=== PATIENT | female | born 1990 | race Caucasian/White ===

== ENCOUNTER 2018-12-09 12:46 | Emergency (ER) | payer BC, SELFPAY ==
[2018-12-09 12:47] VITALS: BP 125/61; PULSE 130; RESP 28; TEMP 37.7; O2SAT 98; BMI 28.1
--- NOTE | 2018-12-09 12:59 | EKG12_ITS ---
Test Reason : CP Blood Pressure : / mmHG Vent. Rate : 104 BPM Atrial Rate : 104 BPM P-R Int : 134 ms QRS Dur : 084 ms QT Int : 332 ms P-R-T Axes : 025 042 025 degrees QTc Int : 436 ms Sinus tachycardia Nonspecific ST abnormality Abnormal ECG Confirmed by UMBERTO LOO, DESHAUN ([id number]), editor in chief newspaper [employer] ALEXANDER ([id number]) on 12/11/2018 7:12:17 AM Referred By: TRISTIN Confirmed By:DESHAUN SHIPMAN MD
[2018-12-09 13:02] VITALS: BP 110/66; PULSE 103; PULSE 110; RESP 14; RESP 16; TEMP 37.1; O2SAT 97
[2018-12-09 13:03] VITALS: O2SAT 96
--- NOTE | 2018-12-09 13:21 | ED.DCSUM_ITS ---
History of Present Illness Chief Complaint: Cough Informant: Patient Onset: Days - 2 Context: Gradual Onset Timing: Continuous Quality: ENGLISH COMPOSITION INSTRUCTOR cough Location: chest Current Severity: Moderate Maximum Severity: Moderate Worsened by: coughing Relieved by: nothing Associated Symptoms: subj fever/chills, myalgias, burning center chest w/ cough only Narrative: Patient had influenza vaccine this season. There has been a high prevalence of influenza in this area for the past several weeks, including in patients who have been vaccinated. She is 15 weeks, she has had no abdominal pains, vaginal discharge, or bleeding. She states she is urinating a little less because her appetite has been poor in the last couple days and she is not been eating or drinking very much but she denies any nausea or vomiting. Mild sore throat, no earache, neck is sore and she has been having some headaches off and on. Past Medical History - Allergies and Home Meds Allergies/Adverse Reactions: Allergies codeine Allergy (Verified 12/09/18 12:49) Rash Past Medical History: None Lives: Spouse/ Significant Other Smoking Status: Never smoker Review of Systems General: Reports: Chills, Fever, Malaise, Subjective Eyes: Denies: Visual changes - bilaterally, Diplopia ENT: Reports: Sore throat Cardiovascular: Reports: Chest pain. Denies: Palpitations Respiratory: Reports: Cough. Denies: Dyspnea, Sputum Gastrointestinal: Denies: Abdominal pain, Nausea, Vomiting, Diarrhea, Melena, Hematochezia Genitourinary: Denies: Dysuria, Hematuria, Frequency Musculoskeletal: Reports: Myalgias, Neck pain, Extremity Pain. Denies: Back pain Skin: Denies: Rash, Wounds Neurological: Denies: Headache, Weakness, Numbness Physical Exam Vital Signs/Narrative: Vital Signs Temp Pulse Resp BP Pulse Ox 12/09/18 13:02 98.8 F 103 H 16 110/66 97 12/09/18 12:47 99.8 F H 130 H 28 H 125/61 H 98 Inital Vital Signs reviewed: Yes General: Well nourished, Well developed, No Acute Distress Head: Normocephalic, Atraumatic Eyes: Perrl, EOMI ENT: Moist mucous membranes, No rhinorrhea, TM's clear, Nasal congestion, - - POP clear, no erythema Neck: Supple, Nontender, No lymphadenopathy Cardiovascular: Regular rate, Regular rhythm, No murmurs, Tachycardia Respiratory: No distress, CTA bilaterally, Chest nontender Abdomen: Soft, Nontender, Nondistended, Normal bowel sounds Back: Nontender, Normal Inspection Extremities: Nontender, No edema Skin: Normal color, No rash, No Trauma Neurological: Alert, Oriented x3, Cranial nerves II-XII grossly intact, Normal Strength, Normal Sensation Psychological: Normal affect, Normal Mood Diagnostic/Tx/Re-eval - Medical Decision Making Patient likely has influenza. Given her classic symptoms time and the area where prevalence is high, I think empiric treatment is reasonable without testing. She is given the first Tamiflu now since she is at the cusp of 48 hours, as well as Tylenol and advised to push fluids. Her lungs are clear, I do not think she needs a chest x-ray. I will also prescribe her albuterol inhaler to see if it helps with some of the bronchitis-like symptoms she is having in her chest, we discussed using that she is comfortable with this overall plan. She is also asking for a work note. ED Disposition - Plan for ED Patient: Disposition: Home or Assisted Living Diagnosis: Influenza-like illness, First trimester Instructions: ED Flu Prescriptions: Albuterol Inhaler [Ventolin Hfa] 1 - 2 puff INHALATION Q4H PRN PRN #1 inhaler PRN Reason: Wheezing or bronchospasm Oseltamivir Phosphate [Tamiflu] 75 mg PO BID #10 cap Referrals: DoctorDelia, [STAFF PHYSICIAN] - Additional Instructions: Tylenol as needed for pain/fevers. May take Benadryl and/or guaifenesin as needed for runny nose/cough, but no oth er [id number] medicines. May also take cough drops as much as you need. Push yourself to drink plenty of fluids.
[2018-12-09] MEDS: Acetaminophen 500 MG Tablet 1000 MG PO (13:32)
[2018-12-09] MEDS: Oseltamivir Phosphate 75 MG Capsule PO (13:32)
[2018-12-09 13:33] VITALS: BP 110/74; PULSE 107; RESP 18; O2SAT 97
== END 2018-12-09 13:48 | disposition home or self-care (01) ==
PROVIDERS: Emergency Provider Emergency Medicine
DX: O98.512 Other viral diseases complicating pregnancy, second trimester (principal); J11.1 Influenza due to unidentified influenza virus with other respiratory manifestations; Z3A.15 15 weeks gestation of pregnancy
CPT/HCPCS: 93005; 99283

== ENCOUNTER 2019-03-22 15:50 | Outpatient (CLI) | payer BC, SELFPAY ==
[2019-03-22 16:14] VITALS: BMI 31.8
--- NOTE | 2019-03-22 19:35 | OB.TRI.NOTE ---
- Problem List (1) Decreased movement Status: Acute History of Present Illness Date of Service: 03/22/19 Was patient seen by the physician?: No Reason For Visit: DECREASED MOVEMENT Date of Service: 03/22/19 Final DEMARIO: 06/12/19 Final DEMARIO Source: US <20 weeks Gestational age: 28 Weeks and 2 Days Allergies codeine Allergy (Verified 03/22/19 16:16) Rash NST - FHR Rate Baby A Baseline: 125 Variability:: Moderate Accelerations:: 15 x 15 Decelerations:: None NST Reactive:: Yes FHR Category:: Category I Uterine Activity:: one contraction noted Impression/Plan G2, P1 at 28.2 weeks gestation presents for decreased movement NST reactive. DC home Follow-up in the office as scheduled
== END 2019-03-22 16:35 | disposition home or self-care (01) ==
LOC: WPOUT 16:05 → WP 16:06
PROVIDERS: Visit Provider Obstetrics & Gynecology
DX: O36.8130 Decreased fetal movements, third trimester, not applicable or unspecified (principal); Z3A.28 28 weeks gestation of pregnancy
CPT/HCPCS: 59025; 59050; 99218; G0378

== ENCOUNTER 2019-05-29 01:35 | Inpatient (IN) | payer BC, SELFPAY ==
[2019-05-29 02:10] VITALS: BMI 33.1
[2019-05-29] MEDS: Lactated Ringers 1,000 ML 50 ML IV (02:10)
[2019-05-29 02:29] LABS: Absolute Lymphocyte Count 1.93 X10^3/uL (0.83-4.51); Absolute Neutrophil Count 7.8 X10^3/uL (2.0-7.7); Basophil# 0.02 X10^3/uL; Basophil% 0.2 % (0-1); Eosinophil# 0.14 X10^3/uL; Eosinophils% 1.3 % (0-5); Hematocrit 37.6 % (37-47); Hemoglobin 13.2 g/dL (12.0-15.0); Lymphocyte # 1.93 X10^3/ul (4.0); Lymphocyte % 18.3 % (19-41); Mean Corp Hgb Conc 35.1 g/dL (32-36); Mean Corpuscular Hgb 30.8 pg (27.0-32.0); Mean Corpuscular Volume 87.6 fL (81-99); Mean Platelet Vol. 9.1 fl (6.2-12.0); Monocyte# 0.66 X10^3/uL; Monocyte% 6.2 % (0-10); NRBC Flagged by Analyzer 0 % (0-5); Neutrophil # 7.78 X10^3/uL (2.7-7.7); Neutrophil % 73.6 % (47-70); Platelet Count 154 K/mm3 (150-450); RBC Distribution Width CV 13.1 % (11.6-14.6); RBC Distribution Width SD 41.4 fl (35.1-43.9); Red Blood Count 4.29 M/mm3 (4.2-5.4); White Blood Count 10.6 K/mm3 (4.4-11.0)
[2019-05-29] MEDS: Lactated Ringers 500 ML 999 ML IV ×3 (02:43→08:54)
[2019-05-29] MEDS: Nalbuphine 10 MG/ML Ampul IV (03:38)
[2019-05-29] MEDS: fentaNYL-bupivacaine (epidural) 100 ML BAG EPIDURAL ×2 (04:13→08:25)
--- NOTE | 2019-05-29 08:15 | HP.PCM_ITS ---
History Date of Admission: 05/29/19 Final DEMARIO: 06/01/19 Final DEMARIO Source: US <20 weeks Gestational age: 39 Weeks and 4 Days History of this : This is a 28 year-old, G [], P [], at 39 weeks gestational age. Medical History: Medical History (Last Updated 05/29/19 @ 08:17 by Trung oSlomon) Depression F32.9 Hx of cryosurgery, cervix, complicating O34.40, Z98.890 history superficial thrombosis Allergies codeine Allergy (Verified 05/29/19 02:15) Rash Home Medications: Home Medications Pnv No.95/Ferrous Fum/Folic AC [ Formula] 1 each PO DAILY 12/09/18 Cetirizine HCl [Zyrtec] 10 mg PO DAILY 03/22/19 Smoking Status: Never smoker Alcohol: None Number of Fetus(es): 1 NST - FHR Rate Baby A Baseline: 110 Variability:: Moderate Accelerations:: 15 x 15 Decelerations:: None Uterine Activity:: Q3-4 minutes History Past Pregnancies: Past Pregnancies Delivery Date Name GA/Weeks Outcome Route Weight Infant Gender Labor Length Anesthesia Delivery Location Provider FOB Labs: See [facility] H[facility]P Physical Exam General: Alert, Oriented x3 Abdomen: Soft, Non-Distended - ff mid & below umb Neurological: Cranial nerves II-XII grossly intact FOOD SAFETY SPECIALIST: Normal external genitalia Estimated gestational size: Appropriate for gestational size Presentation: Cephalic Cervix Dilation (cm): 6 Station: -1 Effacement (%): 80 Assessment/Plan All Active Problems Decreased movement (Acute) This is a 28 year-old, G 2, P 1, at 39&4 weeks gestational age. Admit to L&D Labor - will augment with pitocin as needed GBS negative Pain - epidural EFW less than 4500g, adequate pelvis Routine care
[2019-05-29] MEDS: Lactated Ringers 1,000 ML 200 ML IV (08:24)
[2019-05-29] MEDS: Acetaminophen 325 MG Tablet PO (08:29)
[2019-05-29] MEDS: Oxytocin 30 units/NS 500 ml 30 UNITS/500 ML IV.SOLN IV (08:36)
[2019-05-29] MEDS: Amnioinfusion- 0.9% NS 1,000 ML IV.SOLN. 200 ML INTRA-UTER (09:24)
[2019-05-29] MEDS: Oxytocin 30 units/NS 500 ml 30 UNITS/500 ML IV.SOLN 334 UNITS IV (12:03)
--- NOTE | 2019-05-29 12:28 | PCM.OPRPT ---
Vaginal Delivery Maternal Presentation: Active Labor Amniotic Membrane Rupture Type: Artificial Amniotic Fluid Description: Clear Final DEMARIO: 06/01/19 Gestational age: 39 Weeks and 4 Days Date of Procedure: 05/29/19 Pre-Operative Diagnosis: Labor Post-Operative Diagnosis: Labor Surgery/ Procedure Performed: Spontaneous Vaginal Delivery Type of Anesthesia: Epidural Description of Procedure: Patient in stirrups when c/c/+2. She pushed to deliver head. head was gently guided to allow delivery of anterior & posterior shoulders. No excess traction placed on head. Body delivered and placed on maternal abdomen. 3VC clamped & cut in delayed fashion. Placenta delivered with gentle traction. Good uterine tone obtained. Presentation: ISIDRO Placental Delivery Description: Spontaneous Placenta Disposition: [facility] Cord Vessel Description: 3 Vessels Cord Entanglement: None Estimated Blood Loss: 200ml A gender: Male - Donny (1 minute): 8 (5 minute): 9 Episiotomy Description: None Laceration: None Medications given after delivery: IV Pitocin Complications: None
[2019-05-29 16:16] VITALS: BP 127/71; PULSE 82; RESP 18; TEMP 36.9; O2SAT 99
--- NOTE | 2019-05-29 16:17 | NURSING ---
Patient ambulated to bathroom. Pad changed. Pericare performed. Tolerated well. Voided - missed hat.
--- NOTE | 2019-05-29 16:18 | NURSING ---
Missed hat, estimate of at least 700 ml of urine
[2019-05-29] MEDS: Ibuprofen 600 MG Tablet PO ×2 (16:25→23:10)
[2019-05-29] MEDS: Acetaminophen 500 MG Tablet 1000 MG PO (17:58)
[2019-05-29 20:25] VITALS: BP 104/57; PULSE 92; RESP 18; TEMP 36.9; O2SAT 97
[2019-05-30 00:15] VITALS: BP 105/63; PULSE 74; RESP 18; TEMP 36.5
[2019-05-30 04:00] VITALS: BP 120/75; PULSE 85; RESP 18; TEMP 36.3
[2019-05-30] MEDS: Acetaminophen 500 MG Tablet 1000 MG PO ×2 (04:17→16:12)
[2019-05-30 09:00] VITALS: BP 111/69; PULSE 81; RESP 18; TEMP 36.6; O2SAT 98
[2019-05-30] MEDS: Ibuprofen 600 MG Tablet PO (09:12)
--- NOTE | 2019-05-30 10:32 | PCM.PN.OB ---
Subjective: No complaints - Physical Exam General: Alert, Oriented x3 Abdomen: Soft, Non Tender, Non-Distended - ff mid & below umb Extremities: No Calf Tenderness Vital Signs Temp Pulse Resp BP Pulse Ox 97.3 F L 85 18 120/75 97 05/30/19 04:00 05/30/19 04:00 05/30/19 04:00 05/30/19 04:00 05/29/19 20:25 Oxygen Delivery Method Room Air Weight: 218 lb Body Mass Index (BMI) 33.1 Intake and Output for Last 24 Hours 05/28/19 05/29/19 05/30/19 23:59 23:59 23:59 Intake Total 3946.87 / 3946.87 Output Total 800 / 800 Balance 3146.87 / 3146.87 Medical Necessity - Tobacco Use Smoking Status: Never smoker Assessment/Plan All Active Problems (Last Updated 05/29/19 @ 08:17 by Trung Solomon) Decreased movement (Acute) PPD#1 D/c home later today per patient request
--- NOTE | 2019-05-30 10:34 | DCINST_ITS ---
Discharge Diet: No Restrictions Discharge Activity: May Drive, May Shower May resume sexual activity in: 6 weeks Weight Bearing Status: Weight bearing as tolerated Additional Instructions: If you experience any of the following, contact your healthcare provider. * Bleeding that soaks a pad every hour for 2 hours * Fever 100.4 or higher * Unrelieved incision or abdominal pain * Swelling, redness, discharge or bleeding from your incision or episiotomy site * Your incision begins to separate * Problems urinating (including inability to urinate or burning while urinating). * Visual changes * Severe headache * Flu-like symptoms * Pain or redness in one of both of your breasts * Pain, warmth, tenderness or swelling in your legs, especially the calf area * Frequent nausea and vomiting * Symptoms of depression or anxiety If you experience any of the following, call 911 or go to the nearest Emergency Room. * Chest pain * Problems breathing * Seizure activity * Partial or complete paralysis of a body part, slurred speech, weakness or drooping of the face, or a sudden inability to walk or hold your balance Allergies/Adverse Reactions: Allergies codeine Allergy (Verified 05/29/19 02:15) Rash Medications to take at Discharge Pnv No.95/Ferrous Fum/Folic AC [ Formula Tablet] 1 each PO DAILY 12/09/18 Cetirizine HCl [Zyrtec] 10 mg PO DAILY 03/22/19 Primary Care Physician: Care Physician,No Primary [Primary Care Provider] - Test Results: Test results from this visit will be discussed in further detail at your follow- up appointment, if applicable.
--- NOTE | 2019-05-30 10:34 | PCM.DCVAG ---
Discharge Diet: No Restrictions Discharge Activity: May Drive, May Shower May resume sexual activity in: 6 weeks Weight Bearing Status: Weight bearing as tolerated Additional Instructions: If you experience any of the following, contact your healthcare provider. Bleeding that soaks a pad every hour for 2 hours Fever 100.4 or higher Unrelieved incision or abdominal pain Swelling, redness, discharge or bleeding from your incision or episiotomy site Your incision begins to separate Problems urinating (including inability to urinate or burning while urinating). Visual changes Severe headache Flu-like symptoms Pain or redness in one of both of your breasts Pain, warmth, tenderness or swelling in your legs, especially the calf area Frequent nausea and vomiting Symptoms of depression or anxiety If you experience any of the following, call 911 or go to the nearest Emergency Room. Chest pain Problems breathing Seizure activity Partial or complete paralysis of a body part, slurred speech, weakness or drooping of the face, or a sudden inability to walk or hold your balance Allergies/Adverse Reactions: Allergies codeine Allergy (Verified 05/29/19 02:15) Rash Medications to take at Discharge Pnv No.95/Ferrous Fum/Folic AC [ Formula Tablet] 1 each PO DAILY 12/09/18 Cetirizine HCl [Zyrtec] 10 mg PO DAILY 03/22/19 Primary Care Physician: Care Physician,No Primary [Primary Care Provider] - Test Results: Test results from this visit will be discussed in further detail at your follow-up appointment, if applicable.
--- NOTE | 2019-05-30 15:00 | CASEMGMT ---
Social Work Referral Date: 05/30/19 Date of Assessment: 05/30/19 Reason for Consult: MOB with History of Depression Informant: Nursing, Doctor, Chart, and Mother of baby (MOB). Personal Status Mentation: MOB alert and oriented x3. Present during assessment: MOB, Father of baby (FOB), and infant. Hx : 2 Hx Para: 1 Infant Gender: Male Name: Donny Quiroz (1min): 8 (5min): 9 Care: Adequate Alleged father: Saumya Quiroz Alleged father involved: Yes Length of Relationship with alleged father of baby: 4-5 years. FOB Mental Health/AOD/Domestic Violence Hx: Denies any issues/concerns. FOB Employment: [employer] Number of Children in the home: This will be second infant for MOB and FOB. Custody Comments: MOB and FOB have custody of this infant along with older brother, Guillaume Quiroz. Guillaume is age 4. Living Arrangements: MOB, FOB, Guillaume and now this live in private home. Education: High School Employment: [employer] Family Dynamics/Relationships: No concerns or issues noted. Supports: MOB stating to have support from family. MOB has tiller worker established for Own and that is the plan for this as well when MOB returns to work. Transportation: No concerns. Substance Abuse Hx and Current Pattern of Use MOB denies any substance abuse or use. FOB does smoke but only outside. MOB and FOB aware of concerns/risk of smoking around children. Mental Health Hx and Current Status MOB stating to have a history of depression and anxiety and to have had depression with past . MOB stating to have taken medication year ago but denies any current medication. MOB stating to have found that counseling is what helps me. Patient stating to see a counselor every 2 weeks through [facility] in [place]. This vp digital marketing social media and crm encouraging MOB to continue with counseling services. MOB plans to continue with counseling and states to have support from FOB as well. Items/Skills List for Infants Care Supplies: MOB stating to have all needed infant supplies. Bonding With Infant: MOB stating to have a connection with and that was planned. Observed Maternal/Paternal Child interaction: MOB gazing at infant often during assessment as was resting in bassinet. Emotional Assessment: MOB presenting with a positive and engaged affect during assessment. Control: MOB stating to be planning to have a tubal completed. Resources MOB denies any children services involvement in the past. MOB denies any Help Me Grow or WIC involvement. This vp digital marketing social media and crm did provide MOB with [facility] resources, Safe Sleep, depression and Help Me Grow. Intervention: None indicated at this time Plan: to discharge to home with MOB, VITA and brother Guillaume. Miguel Davis MSW, [place]
[2019-05-30 15:55] VITALS: BP 109/67; PULSE 85; RESP 20; TEMP 36.3; O2SAT 96
== END 2019-05-30 16:35 | disposition home or self-care (01) | DRG 807 ==
PROVIDERS: Obstetrics & Gynecology; Admitting Provider Obstetrics & Gynecology; Visit Provider Obstetrics & Gynecology
DX: O36.8190 Decreased fetal movements, unspecified trimester, not applicable or unspecified (principal); Z37.0 Single live birth; Z3A.39 39 weeks gestation of pregnancy
CPT/HCPCS: 59025; 59050; 85025; 86850; 86900; 86901; 99218; J7030; J7120; G0378

== ENCOUNTER 2019-05-31 08:44 | Emergency (ER) | payer BC, SELFPAY ==
[2019-05-31 08:45] VITALS: BP 126/80; PULSE 81; RESP 17; TEMP 36.8; O2SAT 95; BMI 32.1
[2019-05-31 09:06] LABS: Bacteria 0 SEEN /hpf (None Seen); Mucous, Urine 0 SEEN /hpf (<or=2+)
[2019-05-31 09:09] LABS: Color, Urine Yellow (Yellow); Glucose, Dipstick Normal (Normal); Ketone-Dipstick Negative (Negative); Leukocyte Esterase-Dipstick 500 /ul (Negative); Nitrite-Dipstick Negative (Negative); Occult Blood-Urine 250 /ul (Negative); Protein-Dipstick 15 mg/dl (Negative); Urine Bilirubin Dipstick Negative (Negative); Urine Clarity Clear (Clear); Urine Urobilinogen Normal (Normal)
[2019-05-31 09:30] LABS: Red Blood Cells-Urine 50-100 SEEN /hpf (0-5)
[2019-05-31 09:31] LABS: Squamous Epithelial Cells - UA 0-5 SEEN /hpf (5-10); White Blood Cells 10-25 SEEN /hpf (0-5)
[2019-05-31] MEDS: Ibuprofen 600 MG Tablet PO (09:35)
--- NOTE | 2019-05-31 09:59 | ED.DCSUM_ITS ---
History of Present Illness Chief Complaint: Complaint Informant: Patient Onset: Yesterday Narrative: She is a 28-year-old female status post spontaneous vaginal delivery 2 days ago. Patient is presenting for concern of urinary tract infection. Patient states she did have a Loyd catheter during her delivery. Patient was discharged from the hospital yesterday. She states she has had increased frequency of urination and dysuria. She is feels that she is urinating orange blood like color. She states this is different than her vaginal bleeding. She states her vaginal bleeding has been normal for her recent delivery. She denies any fever chills. She is also having worsening suprapubic pain. She notes that during her last delivery she had a very bad urinary tract infection as well and she is concerned this could be developing again. Patient states she was delivered by Dr. Solomon. Patient denies any other complaints at this time. She denies any associated nausea, vomiting or back pain. She feels that she is otherwise doing well. Past Medical History - Allergies and Home Meds Allergies/Adverse Reactions: Allergies codeine Allergy (Verified 05/31/19 08:45) Rash Primary Care Physician: Trung Solomon [STAFF PHYSICIAN] - Care Physician,No Primary [Primary Care Provider] - Smoking Status: Never smoker Review of Systems All systems negative except as indicated ENT: Denies: Rhinorrhea, Sore throat Gastrointestinal: Reports: Abdominal pain - Suprapubic. Denies: Nausea Genitourinary: Reports: Dysuria, Hematuria, Frequency Musculoskeletal: Denies: Myalgias Physical Exam Vital Signs/Narrative: Vital Signs Temp Pulse Resp BP Pulse Ox 05/31/19 08:45 98.2 F 81 17 126/80 H 95 Inital Vital Signs reviewed: Yes General: Well nourished, Well developed, No Acute Distress Head: Normocephalic, Atraumatic Eyes: Perrl, EOMI ENT: Moist mucous membranes, No rhinorrhea Neck: Supple, Nontender Cardiovascular: Regular rate, Regular rhythm, No murmurs Respiratory: No distress, CTA bilaterally, Chest nontender Abdomen: Soft, Nondistended, Normal bowel sounds, - - Firm uterus palpated below the level of the umbilicus by 2 cm, mild tenderness palpation associated with this, no peritoneal signs Back: Nontender, Normal Inspection. Negative for: CVA tenderness Extremities: Nontender, No edema Skin: Normal color, No rash Neurological: Alert, Oriented x3, Cranial nerves II-XII grossly intact, Normal Strength, Normal Sensation Psychological: Normal affect, Normal Mood Diagnostic/Tx/Re-eval Laboratory Results - last 24 hr 05/31/19 09:00 Urine Color Yellow Urine Clarity Clear Urine pH 7.0 Ur Specific Bronson 1.010 Urine Protein 15 H Urine Glucose (UA) Normal Urine Ketones Negative Urine Occult Blood 250 H Urine Nitrite Negative Urine Bilirubin Negative Urine Urobilinogen Normal Ur Leukocyte Esterase 500 H Urine RBC 50-100 SEEN Urine WBC 10-25 SEEN Ur Squamous Epith Cells 0-5 SEEN Urine Bacteria 0 SEEN Urine Mucus 0 SEEN - Medical Decision Making She is evaluated for UTI symptoms. She is 48 hours status post spontaneous vaginal delivery. She appears nontoxic and in no acute distress. She denies any abnormal vaginal bleeding or discharge given her recent delivery. Bladder scan obtained which shows approximately 100 cc of urine. Not think she is acutely retaining. Urinalysis does show elevated leukoesterase and patient will be treated for urinary tract infection. She is prescribed Keflex which is safe for breast-feeding. Urine culture is sent. She is well-appearing and does not have concerns for pyelonephritis or endometritis at this time. Discussed with her BENEFITS PROCESSOR, Dr. Solomon, who is agreeable with this plan. Patient is encouraged to follow-up with the BENEFITS PROCESSOR clinic. Patient is counseled on signs and symptoms requiring return to the emergency room. Patient verbalizes agreement and understand this plan. Patient discharged home in stable and improved condition. ED Disposition - Plan for ED Patient: Disposition: Home or Assisted Living Diagnosis: UTI (urinary tract infection) Instructions: Bladder Infection, Female (Adult) Prescriptions: Fluconazole [Diflucan] 150 mg PO X1 #1 tab Prescription Printed Cephalexin [Keflex] 500 mg PO Q12 #10 cap Prescription Printed Referrals: Care Physician,No Primary [Primary Care Provider] - Trung Solomon [STAFF PHYSICIAN] -
[2019-05-31] MEDS: Cephalexin 250 MG Capsule 500 MG PO (10:35)
[2019-05-31 10:57] VITALS: BP 115/83; PULSE 84; RESP 18
== END 2019-05-31 10:58 | disposition home or self-care (01) ==
PROVIDERS: Emergency Provider Emergency Medicine
DX: N39.0 Urinary tract infection, site not specified (principal)
CPT/HCPCS: 81001; 87086; 99282

== ENCOUNTER 2019-12-17 17:12 | Emergency (ER) | payer BC, SELFPAY ==
[2019-12-17 17:13] VITALS: BP 117/71; PULSE 83; RESP 17; TEMP 36.8; O2SAT 98; BMI 29.1
--- NOTE | 2019-12-17 17:22 | US_ITS ---
STUDY: ABDOMINAL ULTRASOUND - RIGHT UPPER QUADRANT REASON FOR VISIT: Female, 29 years old ABD PAIN TECHNIQUE: Ultrasound evaluation of the right upper quadrant was performed with real-time and static holbrook-scale imaging. TECHNICAL QUALITY: Adequate. COMPARISON: None. FINDINGS: Liver: The liver measures 16.9 cm. There is normal echogenicity of the liver. The bile ducts are within normal limits. There is hepatic color flow. The direction of portal flow is hepatopetal. There is no demonstrated mass lesion. Gallbladder: Normal distended gallbladder. The gallbladder wall measures 2 mm. There is a negative sonographic Ash''s sign. There is no pericholecystic fluid. There are no gallstones. Common Bile Duct (C.B.D.): The common bile duct measures 2 mm. Pancreas: Normal size of the head, body and tail of the pancreas. There is normal echogenicity of the pancreas. There is no demonstrated pancreatic mass or cyst. Right Kidney: Normal size of the right kidney. The right kidney measures 10.4 cm. Normal renal cortex. The right cortex measures 1.1 cm. There is no demonstrated renal mass or cyst. There is no right hydronephrosis. US/Gallbladder IMPRESSION: Normal right upper quadrant ultrasound examination. Electronically Signed: Yang Bucio MD at 18:08 EDT , Service support ,
--- NOTE | 2019-12-17 17:23 | ED.DCSUM_ITS ---
History of Present Illness Chief Complaint: Abd Pain Detail of Chief Complaint: Onset 0300 and several hours prior to arrival Informant: Patient Onset: Today Context: Sudden Onset Timing: Intermittent, Waxes and wanes Quality: Severe pain right upper quadrant epigastrium Location: Right upper quadrant Current Severity: Moderate Maximum Severity: Severe Worsened by: Nothing per patient Relieved by: Nothing per patient Associated Symptoms: Emesis x1 green appearing material Narrative: Patient is a 29-year-old woman status post bilateral tubal ligation who was last normal menstrual period was 1 month ago. She presents with severe epigastric right upper quadrant pain that awoke her from sleep at 0300. She also had episode that started several hours ago. She is not had anything to eat since this morning. She states she ate between 0800?0900. She had a bowl of cereal. Has had nothing to eat since. She denies cardiac respiratory symptoms. She denies URI symptoms. She denies urologic symptoms. There is no history of trauma. Brother has issues with gallbladder. Prior similar symptoms: No Recent Illness/Hospitalization: No - Past Medical History (1) No significant past medical history Status: Acute Past Medical History - Allergies and Home Meds Allergies/Adverse Reactions: Allergies codeine Allergy (Verified 12/17/19 17:13) Rash Primary Care Physician: Care Physician,No Primary [Primary Care Provider] - Prior records reviewed: Yes Surgical History: no surgical history Lives: - - Patient is Smoking Status: Never smoker Alcohol: None Drugs: None Review of Systems General: Denies: Chills, Fever, Malaise, Sweats Eyes: Denies: Visual changes - bilaterally, Blurred Vision - bilaterally ENT: Denies: Rhinorrhea, Sore throat Cardiovascular: Denies: Chest pain, Palpitations Respiratory: Denies: Dyspnea, Cough, Dyspnea on exertion Gastrointestinal: Reports: Abdominal pain, Nausea, Vomiting. Denies: Diarrhea, Constipation, Melena, Hematochezia, -, - Genitourinary: Denies: Dysuria, Hematuria, Frequency Musculoskeletal: Denies: Myalgias, Arthralgias, Neck pain, Back pain, Swelling, Extremity Pain, -, - Skin: Denies: Rash, Wounds Neurological: Denies: Headache, Weakness, Numbness Hematologic: Denies: Easy bruising, Easy bleeding Physical Exam Vital Signs/Narrative: Vital Signs Temp Pulse Resp BP Pulse Ox 12/17/19 17:13 98.2 F 83 17 117/71 98 Inital Vital Signs reviewed: Yes General: Well nourished, Well developed, Obese, Acute Distress Head: Normocephalic, Atraumatic Eyes: Perrl, EOMI ENT: Moist mucous membranes, No rhinorrhea Neck: Supple, Nontender, No lymphadenopathy, No JVD Cardiovascular: Regular rate, Regular rhythm, No murmurs, Normal S1, Normal S2 Respiratory: No distress, CTA bilaterally, Chest nontender Abdomen: Soft, Nondistended, No masses, Tender, Guarding, Ash's sign. Negative for: Normal bowel sounds, Rebound tenderness, Hepatomegaly, Splenomegaly, Mass, Pulsatile mass, Ventral hernia, Umbilical hernia Rectal: Deferred Back: Nontender, Normal Inspection Extremities: Nontender, No edema Skin: Normal color, No rash Neurological: Alert, Oriented x3, Cranial nerves II-XII grossly intact, Normal Strength, Normal Sensation Psychological: Normal affect, Normal Mood Diagnostic/Tx/Re-eval Impressions Gallbladder Ultrasound 12/17/19 17:22 IMPRESSION: Normal right upper quadrant ultrasound examination. Electronically Signed: Yang Bucio MD at 18:08 EDT , Service support , 12/17/19 17:22 Gallbladder [US] Stat Laboratory Results 12/17/19 12/17/19 17:30 17:30 WBC 5.8 RBC 4.70 Hgb 14.3 Hct 41.8 MCV 88.9 MCH 30.4 MCHC 34.2 RDW Std Deviation 37.7 RDW Coeff of Lisbeth 11.7 Plt Count 212 MPV 9.7 Immature Gran % (Auto) 0.200 Neut % (Auto) 56.3 Lymph % (Auto) 31.9 [place] % (Auto) 8.0 Eos % (Auto) 3.3 Baso % (Auto) 0.3 Absolute Neuts (auto) 3.2 Absolute Lymphs (auto) 1.84 Nucleated RBC % 0 Total Bilirubin 0.40 Direct Bilirubin 0.06 AST 23 ALT 21 Alkaline Phosphatase 57 Total Protein 7.8 Albumin 4.3 Globulin 3.5 Lipase 113 Patient's work-up is negative. This probably represents peptic ulcer disease. She initially was treated with Toradol with minimal improvement. She did receive a GI cocktail. Patient was reassessed at 10/01/2000. She is pain-free resting comfortably in bed after GI cocktail. Plan is to discharge with prescription for PPI. And referral to primary care physician since she is insured without primary care doctor. She was referred to Dr. Peguero - Medical Decision Making Abrupt onset of right upper quadrant pain that awoke patient from sleep and several hours prior to presentation need to evaluate for cholelithiasis, acute cholecystitis, choledocholithiasis, right lower lobe pneumonia Bassam-Dani Acosta syndrome. CBC, hepatic and lipase were ordered. She was medicated with 50 mg of Toradol IV push because she reports itching and rash with codeine. She also received 4 mg of Zofran for her nausea and vomiting. ED Disposition - Plan for ED Patient: Disposition: Home or Assisted Living Diagnosis: Epigastric pain Instructions: ED PEPTIC ULCER vs GASTRITIS Prescriptions: Omeprazole 40 mg PO QHS #30 capsule.dr Transmission Status: Pending to [facility]/pharmacy #[id number] Referrals: Care Physician,No Primary [Primary Care Provider] - Bryn Robb MD [NON-STAFF] - 5-7 Days
[2019-12-17] MEDS: Ketorolac 15 MG/ML Vial IV (17:33)
[2019-12-17] MEDS: Ondansetron 4 MG/2 ML Vial IV (17:33)
[2019-12-17] MEDS: 0.9% Normal Saline 1,000 ML 125 ML IV (17:33)
[2019-12-17 18:34] LABS: Absolute Lymphocyte Count 1.84 X10^3/uL (0.83-4.51); Absolute Neutrophil Count 3.2 X10^3/uL (2.0-7.7); Basophil# 0.02 X10^3/uL; Basophil% 0.3 % (0-1); Eosinophil# 0.19 X10^3/uL; Eosinophils% 3.3 % (0-5); Hematocrit 41.8 % (37-47); Hemoglobin 14.3 g/dL (12.0-15.0); Lymphocyte # 1.84 X10^3/ul (4.0); Lymphocyte % 31.9 % (19-41); Mean Corp Hgb Conc 34.2 g/dL (32-36); Mean Corpuscular Hgb 30.4 pg (27.0-32.0); Mean Corpuscular Volume 88.9 fL (81-99); Mean Platelet Vol. 9.7 fl (6.2-12.0); Monocyte# 0.46 X10^3/uL; NRBC Flagged by Analyzer 0 % (0-5); Neutrophil # 3.24 X10^3/uL (2.7-7.7); Neutrophil % 56.3 % (47-70); Platelet Count 212 K/mm3 (150-450); RBC Distribution Width CV 11.7 % (11.6-14.6); RBC Distribution Width SD 37.7 fl (35.1-43.9); White Blood Count 5.8 K/mm3 (4.4-11.0)
[2019-12-17] MEDS: Mag Hydrox/Al Hydrox/Simeth 30 ML UDC PO (18:39)
[2019-12-17 18:54] LABS: AST(SGOT) 23 U/L (15-37); Alanine Aminotransfer ALT/SGPT 21 U/L (13-56); Albumin, Serum 4.3 g/dL (3.2-5.0); Alkaline Phosphatase 57 U/L (45-117); Bilirubin, Direct 0.06 mg/dL (0.00-0.30); Globulin 3.5 g/dL (2.2-4.2); Lipase 113 U/L (73-393); Protein, Total 7.8 g/dL (6.4-8.2)
[2019-12-17 19:24] VITALS: BP 114/60; PULSE 80; RESP 18; O2SAT 98
== END 2019-12-17 19:25 | disposition home or self-care (01) ==
PROVIDERS: Emergency Provider Emergency Medicine
DX: R10.13 Epigastric pain (principal); E66.9 Obesity, unspecified; Z68.29 Body mass index [BMI] 29.0-29.9, adult
CPT/HCPCS: 76705; 80076; 83690; 85025; 96361; 96374; 96375; 99285; J7030; A4216; J2405

== ENCOUNTER 2019-12-19 19:35 | Emergency (ER) | payer BC, SELFPAY ==
[2019-12-19 19:36] VITALS: BP 118/96; PULSE 103; RESP 18; TEMP 36.7; O2SAT 99; BMI 29.5
--- NOTE | 2019-12-19 19:51 | CT_ITS ---
STUDY: CT ABDOMEN AND PELVIS WITH CONTRAST REASON FOR EXAM: Female, 29 years old. RUQ PAIN, NEGATIVE US ON 12-16, PAIN RADIATES TO BACK, HX TUBAL LIGATION RADIATION DOSAGE (If Supplied By Facility): CTDIvol = ( 13.77 ) mGy, DLP = ( 938.19 ) mGycm TECHNIQUE: Transaxial images were obtained from the dome of the diaphragm to the symphysis pubis without oral contrast. IV 100mL Isovue-300 was administered. Sagittal and coronal images were reconstructed. Individualized dose optimization techniques were used for this CT. COMPARISON: None. FINDINGS: The visualized lung bases are unremarkable. The visualized portions of the heart are within normal limits. Normal liver. Normal gallbladder and extrahepatic biliary system. Normal spleen. Normal pancreas. Normal bilateral adrenal glands. Normal right kidney. Normal left kidney. Normal visualized stomach. Normal small intestine. Normal colon. There is non-visualization of the appendix. Normal abdominal aorta. Normal inferior vena cava. Normal retroperitoneum. Normal urinary bladder. There is a 2.2 cm left ovarian cyst. There is a small umbilical hernia containing fat. There is mild endplate spondylosis of the visualized lower thoracic spine. CT/Abdomen/Pelvis W IV Cont ONLY IMPRESSION: 1. 2.2 cm left ovarian cyst. 2. Small fat-containing umbilical hernia. 3. There is no evidence of free intra-abdominal or intrapelvic air, fluid, or inflammatory process. Electronically Signed: Jarod Reis MD at 21:23 EDT , Service support ,
--- NOTE | 2019-12-19 19:52 | ED.DCSUM_ITS ---
History of Present Illness Chief Complaint: Abd Pain Informant: Patient - Abdominal Pain/Flank Pain Onset: Days - 2-3, acutely worse 1 hr [employer], about an hour after eating plain salted crackers Context: Gradual Onset Timing: Continuous Quality: Aching Location: RUQ Current Severity: Severe Maximum Severity: Severe Worsened by: Food Relieved by: Nothing - Nausea/Vomiting/Emesis GI Symptom: Nausea. Negative for: Vomiting - Diarrhea/Melena/Hematochezia GI Symptom: Negative for: Diarrhea, Melena, Hematochezia Associated Symptoms: Negative for: Dysuria, Frequency, Hematuria, Urgency Narrative: Patient was seen here 2 days ago for the same symptoms, she had a negative gallbladder ultrasound for pain in her right upper quadrant, it has been worse with meals since then, she had some crackers at about an hour later today, the pain was suddenly excruciating. This was about an hour prior to arrival here. She states now it radiates into her right low-mid back, which he did not do 2 days ago. She has had no history of abdominal surgeries. No fevers, cough, recent travel. Past Medical History - Allergies and Home Meds Allergies/Adverse Reactions: Allergies codeine Allergy (Verified 12/19/19 19:39) Rash Primary Care Physician: Care Physician,No Primary [Primary Care Provider] - Past Medical History: None Surgical History: no surgical history Lives: With Family Smoking Status: Never smoker Alcohol: None Review of Systems General: Denies: Chills, Fever, Sweats Eyes: Denies: Visual changes - bilaterally, Diplopia ENT: Denies: Rhinorrhea, Sore throat Cardiovascular: Denies: Chest pain, Palpitations Respiratory: Denies: Dyspnea, Cough, Dyspnea on exertion Gastrointestinal: Reports: Abdominal pain, Nausea. Denies: Vomiting, Diarrhea, Melena, Hematochezia Genitourinary: Denies: Dysuria, Hematuria, Frequency Musculoskeletal: Reports: Back pain. Denies: Neck pain, Swelling, Extremity Pa in Skin: Denies: Rash, Wounds Neurological: Denies: Headache, Weakness, Numbness Physical Exam Vital Signs/Narrative: Vital Signs Temp Pulse Resp BP Pulse Ox 12/19/19 19:36 98.1 F 103 H 18 118/96 H 99 Inital Vital Signs reviewed: Yes General: Well nourished, Well developed, Acute Distress Head: Normocephalic, Atraumatic Eyes: Perrl, EOMI ENT: Moist mucous membranes, No rhinorrhea Neck: Supple, Nontender Cardiovascular: Regular rate, Regular rhythm, No murmurs, Tachycardia - mild Respiratory: No distress, CTA bilaterally, Chest nontender Abdomen: Soft, Nondistended, Normal bowel sounds, Tender - RUQ only, Guarding, Ash's sign Back: Nontender, Normal Inspection. Negative for: CVA tenderness Extremities: Nontender, No edema Skin: Normal color, No rash, No Trauma, - - no holbrook perez sign, no alfonzo sign Neurological: Alert, Oriented x3, Cranial nerves II-XII grossly intact, Normal Strength, Normal Sensation Psychological: Tearful Diagnostic/Tx/Re-eval Impressions Abdomen/Pelvis CT 12/19/19 19:51 IMPRESSION: 1. 2.2 cm left ovarian cyst. 2. Small fat-containing umbilical hernia. 3. There is no evidence of free intra-abdominal or intrapelvic air, fluid, or inflammatory process. Electronically Signed: Jarod Reis MD at 21:23 EDT , Service support , 12/19/19 19:51 CT Abd [Abdomen/Pelvis W IV Cont ONLY] [CT] Stat Laboratory Results 12/19/19 12/19/19 12/19/19 20:11 20:11 20:11 WBC 5.9 RBC 4.48 Hgb 13.8 Hct 39.2 MCV 87.5 MCH 30.8 MCHC 35.2 RDW Std Deviation 37.4 RDW Coeff of Lisbeth 11.8 Plt Count 193 MPV 8.5 Immature Gran % (Auto) 0.200 Neut % (Auto) 56.8 Lymph % (Auto) 32.3 [place] % (Auto) 8.0 Eos % (Auto) 2.0 Baso % (Auto) 0.7 Absolute Neuts (auto) 3.4 Absolute Lymphs (auto) 1.91 Nucleated RBC % 0 Sodium 138 Potassium 3.5 Chloride 106 Carbon Dioxide 22.0 Anion Gap 10 BUN 11 Creatinine 0.68 Estim Creat Clear Calc 117.64 Est GFR (MDRD) Af Amer 131 Est GFR (MDRD) Non-Af 108 BUN/Creatinine Ratio 16.2 Glucose 85 Calcium 8.8 Total Bilirubin 0.30 AST 11 L ALT 18 Alkaline Phosphatase 58 Total Protein 7.3 Albumin 4.0 Globulin 3.3 Albumin/Globulin Ratio 1.2 Lipase 158 Serum , Qual NEGATIVE Urine Color Urine Clarity Urine pH Ur Specific [place] Urine Protein Urine Glucose (UA) Urine Ketones Urine Occult Blood Urine Nitrite Urine Bilirubin Urine Urobilinogen Ur Leukocyte Esterase Urine RBC Urine WBC Ur Squamous Epith Cells Urine Bacteria Urine Mucus 12/19/19 21:05 WBC RBC Hgb Hct MCV MCH MCHC RDW Std Deviation RDW Coeff of Lisbeth Plt Count MPV Immature Gran % (Auto) Neut % (Auto) Lymph % (Auto) [place] % (Auto) Eos % (Auto) Baso % (Auto) Absolute Neuts (auto) Absolute Lymphs (auto) Nucleated RBC % Sodium Potassium Chloride Carbon Dioxide Anion Gap BUN Creatinine Estim Creat Clear Calc Est GFR (MDRD) Af Amer Est GFR (MDRD) Non-Af BUN/Creatinine Ratio Glucose Calcium Total Bilirubin AST ALT Alkaline Phosphatase Total Protein Albumin Globulin Albumin/Globulin Ratio Lipase Serum , Qual Urine Color Yellow Urine Clarity Clear Urine pH 8.0 Ur Specific [place] 1.015 Urine Protein Negative Urine Glucose (UA) Normal Urine Ketones Negative Urine Occult Blood Negative Urine Nitrite Negative Urine Bilirubin Negative Urine Urobilinogen Normal Ur Leukocyte Esterase Negative Urine RBC 0 SEEN Urine WBC 0 SEEN Ur Squamous Epith Cells 0-5 SEEN Urine Bacteria RARE Urine Mucus 0 SEEN - Medical Decision Making Patient is much more comfortable and conversive after morphine Zofran IV fluids. Her work-up is negative/normal including CT abdomen/pelvis with IV contrast, negative, all labs including liver enzymes and lipase negative, no leukocytosis. She was put on omeprazole 2 days ago, she took an extra dose today, I think that is the right thing to do certainly peptic ulcer disease is in the differential diagnosis. This is less likely a duodenal ulcer since food is making it worse, not better. Also in the differential is a calculus cholecystitis although since her pain and tenderness is much better on reevaluation and her labs/imaging are all normal, I do not think she needs to be admitted to the hospital for any emergent procedures/surgery. If she continues to have problems despite omeprazole, which she has not failed yet been on it for only 2 days, a HIDA scan may be indicated, which I discussed with the patient. Her CT did show a small fat-containing umbilical hernia, unlikely related to her symptoms as she has no pain or tenderness there. There is nothing else acute seen. Advised she follow-up after the weekend, she is comfortable with that plan and seems very reasonable. She confirms that a GI cocktail helped 2 days ago, so I am giving her that prior to discharge just to continue to help with any residual minor discomfort she has. ED Disposition - Plan for ED Patient: Disposition: Home or Assisted Living Diagnosis: Right upper quadrant abdominal pain Referrals: Doctor,Your [STAFF PHYSICIAN] - 3-5 Days if not improving
[2019-12-19] MEDS: 0.9% Normal Saline 1,000 ML 1000 ML IV (20:19)
[2019-12-19] MEDS: Ondansetron 4 MG/2 ML Vial IV (20:20)
[2019-12-19 20:21] LABS: Absolute Lymphocyte Count 1.91 X10^3/uL (0.83-4.51); Absolute Neutrophil Count 3.4 X10^3/uL (2.0-7.7); Basophil# 0.04 X10^3/uL; Basophil% 0.7 % (0-1); Eosinophil# 0.12 X10^3/uL; Hematocrit 39.2 % (37-47); Hemoglobin 13.8 g/dL (12.0-15.0); Lymphocyte # 1.91 X10^3/ul (4.0); Lymphocyte % 32.3 % (19-41); Mean Corp Hgb Conc 35.2 g/dL (32-36); Mean Corpuscular Hgb 30.8 pg (27.0-32.0); Mean Corpuscular Volume 87.5 fL (81-99); Mean Platelet Vol. 8.5 fl (6.2-12.0); Monocyte# 0.47 X10^3/uL; NRBC Flagged by Analyzer 0 % (0-5); Neutrophil # 3.36 X10^3/uL (2.7-7.7); Neutrophil % 56.8 % (47-70); Platelet Count 193 K/mm3 (150-450); RBC Distribution Width CV 11.8 % (11.6-14.6); RBC Distribution Width SD 37.4 fl (35.1-43.9); Red Blood Count 4.48 M/mm3 (4.2-5.4); White Blood Count 5.9 K/mm3 (4.4-11.0)
[2019-12-19] MEDS: Morphine 4 MG/ML Syringe IV (20:21)
[2019-12-19 20:38] LABS: Internal QC Validated? YES +Cl - CLEAR BKGD; Pregnancy, Serum, hCG Quali. NEGATIVE Negative
[2019-12-19 20:45] LABS: ALB/GLOB Ratio 1.2 RATIO (0.9-2.4); AST(SGOT) 11 U/L (15-37); Alanine Aminotransfer ALT/SGPT 18 U/L (13-56); Alkaline Phosphatase 58 U/L (45-117); Anion Gap 10 (5-15); BUN 11 mg/dL (7-18); BUN/Creat Ratio 16.2 RATIO (10-20); Calcium,Total 8.8 mg/dL (8.5-10.1); Chloride 106 mmol/L (98-107); Creatinine, Serum 0.68 mg/dL (0.55-1.02); EST Glomerular Filtration Rate 108 mL/min (>60); Est Glom Filt Rate - Afr Amer 131 mL/min (>60); Estimated Creatinine Clearance 117.64 ml/min; Globulin 3.3 g/dL (2.2-4.2); Glucose 85 mg/dL (74-106); Lipase 158 U/L (73-393); Potassium 3.5 mmol/L (3.5-5.1); Protein, Total 7.3 g/dL (6.4-8.2); Sodium Level 138 mmol/L (136-145)
[2019-12-19 21:14] LABS: Mucous, Urine 0 SEEN /hpf (<or=2+); Red Blood Cells-Urine 0 SEEN /hpf (0-5); White Blood Cells 0 SEEN /hpf (0-5)
[2019-12-19 21:18] LABS: Color, Urine Yellow (Yellow); Glucose, Dipstick Normal (Normal); Ketone-Dipstick Negative (Negative); Leukocyte Esterase-Dipstick Negative /ul (Negative); Nitrite-Dipstick Negative (Negative); Occult Blood-Urine Negative /ul (Negative); Protein-Dipstick Negative (Negative); Specific Gravity, Urine 1.015 (1.002-1.030); Urine Bilirubin Dipstick Negative (Negative); Urine Clarity Clear (Clear); Urine Urobilinogen Normal (Normal)
[2019-12-19 21:27] LABS: Bacteria RARE /hpf (None Seen); Squamous Epithelial Cells - UA 0-5 SEEN /hpf (5-10)
--- NOTE | 2019-12-19 21:50 | ED.DEP ---
ED Disposition - Plan for ED Patient: Disposition: Home or Assisted Living Diagnosis: Right upper quadrant abdominal pain Instructions: ED PEPTIC ULCER vs GASTRITIS Referrals: Doctor,Your [STAFF PHYSICIAN] - 3-5 Days if not improving
[2019-12-19 22:13] VITALS: BP 107/57; PULSE 63; RESP 14; O2SAT 100
== END 2019-12-19 22:15 | disposition home or self-care (01) ==
PROVIDERS: Emergency Provider Emergency Medicine
DX: R10.11 Right upper quadrant pain (principal)
CPT/HCPCS: 74177; 80053; 81001; 83690; 84703; 85025; 96361; 96374; 96375; 99283; Q9967; A4216; J2405

== ENCOUNTER 2021-09-18 16:00 | Outpatient (RCR) | payer BC, SELFPAY ==
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
== END 2021-09-18 19:00 | disposition home or self-care (01) ==
LOC: PT 16:00
PROVIDERS: PCP Family Medicine; Referring Provider Nurse Practitioner Acute Care; Visit Provider Nurse Practitioner Acute Care
DX: M51.26 Other intervertebral disc displacement, lumbar region (principal)
CPT/HCPCS: 97110; 97112; 97162; 97164; 97530

== ENCOUNTER 2022-09-07 10:55 | Emergency (ER) | payer BC, SELFPAY ==
[2022-09-07 10:56] VITALS: BP 141/88; PULSE 88; RESP 16; TEMP 36.7; O2SAT 100; BMI 30.4
[2022-09-07] MEDS: Mixture 30 ML Bottle TOPICAL (11:28)
--- NOTE | 2022-09-07 11:32 | EX.ED.DYSGE1 ---
HPI History of Present Illness Chief Complaint: Nosebleed Detail of Chief Complaint: Nosebleed Informant: patient Narrative Narrative: Patient presents to the emergency department with complaint of a nosebleed that started around 9:30 AM. Patient states that she was standing at work when it spontaneously started to bleed. Patient tells me she gets frequent nosebleeds and gets 1 about every week. She has not seen an ENT about this but has talked to her PCP about it. Patient denies any trauma to her nose. Patient tried holding pressure and applying ice to the area but did not have success in stopping it. She is not on any anticoagulation. Prior similar symptoms: Yes PFSH [facility] Medical History (Updated 09/07/22 @ 12:[address] Radha Molina, DO) Depression history superficial thrombosis Hx of cryosurgery, cervix, complicating Home Medications omeprazole 40 mg capsule,delayed release 40 mg PO QHS ##30 12/17/19 [Rx Last Taken Unknown] Allergy/AdvReac Type Severity Reaction Status Date / Time codeine Allergy Rash Verified 12/19/19 19:39 Social History Smoking Status: Never smoker ROS ROS ED Review of Systems ROS Unobtainable: other Constitutional Constitutional ED: Reports lethargy; Denies chills, fever(s), sweats or weight loss Eyes Eyes: Denies blurry vision, change in vision or diplopia ENT ENT ED: Reports other Details: Nosebleed left side of nose ; Denies rhinorrhea or sore throat Cardiovascular Cardiovascular: Denies chest pain, orthopnea or racing heartbeat Respiratory/Chest Respiratory/Chest: Denies cough, dyspnea, dyspnea on exertion, orthopnea or sputum Gastrointestinal Gastrointestinal: Denies abdominal pain, diarrhea, nausea or vomiting Genitourinary Genitourinary ED: Denies dysuria, hematuria or urinary frequency Musculoskeletal Musculoskeletal: Denies arthralgias, back pain, myalgias or neck pain Integumentary Denies abscess, Abrasions or rash Neurologic Neurologic: Denies headache(s) or weakness Psychiatric Psychiatric: Denies anxiety, depression or suicidal thoughts Endocrine Endocrinology: Denies polydipsia, polyphagia or polyuria Hematologic/Lymphatic Hematologic/Lymphatic: Denies easy bleeding, easy bruising or lymphadenopathy Allergic/Immunologic Allergic/Immunologic ED: Denies mouth swelling, tongue swelling or urticaria EXAM Physical Exam Const Vital Signs: 09/07/22 10:56 Temperature 98.1 F Temperature Source Temporal Pulse Rate 88 Respiratory Rate 16 Blood Pressure 141/88 H Blood Pressure Mean 105 Pulse Ox 100 Oxygen Delivery Method Room Air Positive well nourished and well developed General Appearance ED: well developed and NAD HEENT Reports TM's clear and moist mucous membranes HEENT Narrative: Evaluation of the left side of her nose reveal that she had some dried blood within the nasal vault but no active bleeding currently. I am unable to visualize source of bleeding. normocephalic and atraumatic; Negative for trauma or tenderness Tympanic Membrane ED: Yes TM's clear Eyes PERRL and EOMs intact bilaterally General Eye ED: Negative for pale conjunctiva or scleral icterus Neck no lymphadenopathy, supple and no JVD General: Negative for tenderness Chest Wall inspection of chest normal and palpation of chest normal Chest: Negative for tenderness Resp normal respiratory effort and clear to auscultation bilaterally Effort and Inspection: Negative for respiratory distress or pain with movement Auscultation: Negative for rhonchi, wheezes or diminished lung sounds Cardio regular rate, regular rhythm, S1 normal heart sound, S2 normal heart sound and no murmurs Peripheral Pulses: pulses 2+ throughout GI normal to inspection, nondistended, normoactive bowel sounds, soft to palpation, non-tender, non-distended and no masses Back/Spine no CVA tenderness and no thoracic nor lumbar tenderness Extremity normal to inspection General Extremety ED: Negative for edema General Extremity: Negative for edema Neuro oriented x3, CN's II-XII intact bilaterally, no sensory deficits noted and gait normal Sensorium / Orientation: awake, alert, oriented to person, oriented to place and oriented to time Motor Exam: strength 5/5 throughout and strength abnormal Psych mental status grossly normal Skin no rashes or lesions noted and no wounds MDM MDM MDM Narrative Medical decision making narrative: I applied a cotton ball with [place] solution on it into the left nasal vault and will keep in place for 20 minutes. On reevaluation after removing the cotton ball patient has some superficial excoriations on the anterior septum with some superficial vessels noted that I cauterized with silver nitrate. Patient Toller procedure well. She had no further bleeding. Patient will be referred to ENT for follow-up. I I did do basic labs CBC and platelet count given her frequent nosebleeds and this was normal. Lab Data Attestation: I reviewed the patient's lab results. Labs: Laboratory Results - last 24 hr 09/07/22 11:50 WBC 4.5 RBC 4.30 Hgb 13.2 Hct 38.4 MCV 89.3 MCH 30.7 MCHC 34.4 RDW Std Deviation 38.5 RDW Coeff of Lisbeth 11.9 Plt Count 240 MPV 9.0 Immature Gran % (Auto) 0.200 Neut % (Auto) 50.7 Lymph % (Auto) 37.7 [place] % (Auto) 7.2 Eos % (Auto) 3.8 Baso % (Auto) 0.4 Absolute Neuts (auto) 2.3 Absolute Lymphs (auto) 1.68 Nucleated RBC % 0 Discharge Plan Triage Chief Complaint: Nosebleed ED Provider: Radha Molina Dx/Rx/DC Orders Clinical Impression: Acute anterior epistaxis Instructions: ED Epistaxis (Adult) Prescriptions: No Action omeprazole 40 MG capsule,delayed release(DR/EC) 40 mg PO QHS Qty: 30 0RF Primary Care Provider: Colette Shanks Referrals: Colette Shanks MD [Primary Care Provider] - Kunal Bedolla MD [Med Staff - Active Staff] - 3-5 Days Disposition Disposition: Home, Self Care
[2022-09-07 12:05] LABS: Absolute Lymphocyte Count 1.68 X10^3/uL (0.83-4.51); Absolute Neutrophil Count 2.3 X10^3/uL (2.0-7.7); Basophil# 0.02 X10^3/uL; Basophil% 0.4 % (0-1); Eosinophil# 0.17 X10^3/uL; Eosinophils% 3.8 % (0-5); Hematocrit 38.4 % (37-47); Hemoglobin 13.2 g/dL (12.0-15.0); Lymphocyte # 1.68 X10^3/ul (0.83-4.51); Lymphocyte % 37.7 % (19-41); Mean Corp Hgb Conc 34.4 g/dL (32-36); Mean Corpuscular Hgb 30.7 pg (27.0-32.0); Mean Corpuscular Volume 89.3 fL (81-99); Monocyte# 0.32 X10^3/uL; Monocyte% 7.2 % (0-10); NRBC Flagged by Analyzer 0 % (0-5); Neutrophil # 2.26 X10^3/uL (2.7-7.7); Neutrophil % 50.7 % (47-70); POSITIVE COUNT YES; Platelet Count 240 K/mm3 (150-450); RBC Distribution Width CV 11.9 % (11.6-14.6); RBC Distribution Width SD 38.5 fl (35.1-43.9); White Blood Count 4.5 K/mm3 (4.4-11.0)
[2022-09-07] MEDS: Silver Nitrate (BKC) 2 EACH TOPICAL (12:27)
[2022-09-07 12:29] VITALS: RESP 18
== END 2022-09-07 12:30 | disposition home or self-care (01) ==
PROVIDERS: Emergency Provider Emergency Medicine; PCP Family Medicine; Visit Provider Emergency Medicine
DX: R04.0 Epistaxis (principal); F32.A Depression, unspecified; Z79.899 Other long term (current) drug therapy
CPT/HCPCS: 30901; 85025; 99282